=== PATIENT | male | born 1985 | race Two or more races ===

== ENCOUNTER 2021-06-29 13:57 | Emergency (ER) | payer OTHER ==
[~2021-06-29] VITALS: Ht 160 cm; Wt 71.2 kg
[2021-06-29 14:32] VITALS: BP 139/68
== END 2021-06-29 15:03 | disposition home or self-care (01) ==
LOC: ER 13:57
DX: S01.03XA Puncture wound without foreign body of scalp, initial encounter (principal); W20.8XXA Other cause of strike by thrown, projected or falling object, initial encounter; Y93.89 Activity, other specified; Y92.89 Other specified places as the place of occurrence of the external cause; Y99.0 Civilian activity done for income or pay